=== PATIENT | female | born 1970 | race Caucasian/White ===

== ENCOUNTER 2023-12-22 14:50 | Emergency (ER) | payer BC ==
[~2023-12-22] VITALS: Ht 162.6 cm; Wt 72.6 kg
[2023-12-22 15:07] VITALS: BP_SYST 108; PULSE 68; RESP 16; TEMP 97.8; O2SAT 96
[2023-12-22] MEDS: KETOROLAC TROMETHAMINE 60 MG/2 ML VIAL IM ONE (16:20)
[2023-12-22] MEDS: predniSONE 20 MG TABLET PO ONE (16:21)
[2023-12-22] MEDS ORDERED: PRED20TA PO (16:51)
[2023-12-22 17:29] VITALS: BP_SYST 126; PULSE 68; RESP 18; TEMP 97.6; O2SAT 98
== END 2023-12-22 17:33 | disposition home or self-care (01) ==
LOC: SED 14:50
DX: M54.30 Sciatica, unspecified side (principal)
CPT/HCPCS: 72100; 99283; J1885; J7512